=== PATIENT | female | born 2005 | race Caucasian/White ===

== ENCOUNTER 2024-04-01 14:57 | Emergency (ER) | payer SELFPAY ==
[~2024-04-01] VITALS: Ht 160 cm; Wt 40.4 kg
[2024-04-01 15:06] VITALS: PULSE 88; RESP 22; TEMP 98; O2SAT 100
[2024-04-01 15:33] LABS: BASOPHILS % 0.2 % (0.0-1.0); EOSINOPHILS % 0.1 % (0.0-6.0); HEMATOCRIT 40.5 % (34.2-44.1); HEMOGLOBIN 14.3 g/dL (12.0-16.0); LYMPHOCYTES # (AUTO) 1.4 (1.0-3.2); LYMPHOCYTES % 16.9 % (18.0-39.1); MEAN CORPUSCULAR HEMOGLOBIN 30.8 pg (28-32); MEAN CORPUSCULAR HGB CONC 35.3 g/dL (31-35); MEAN CORPUSCULAR VOLUME 87.3 fL (81-99); MONOCYTES # (AUTO) 0.4 (0.2-0.8); MONOCYTES % 5.3 % (4.4-11.3); NEUTROPHILS # (AUTO) 6.4 (2.1-6.9); PLATELET COUNT 326 x10e3/uL (140-360); RED BLOOD COUNT 4.64 x10e6/uL (3.6-5.1); RED CELL DISTRIBUTION WIDTH 12.9 % (11.7-14.4); WHITE BLOOD COUNT 8.29 x10e3/uL (4.8-10.8)
[2024-04-01 15:36] LABS: BILIRUBIN,URINE NEGATIVE (NEGATIVE); CLARITY,URINE SL CLOUDY (CLEAR); COLOR,URINE YELLOW (YELLOW); GLUCOSE, URINE NEGATIVE (NEGATIVE); KETONES,URINE 2+ (NEGATIVE); LEUKOCYTE ESTERASE ,URINE NEGATIVE (NEGATIVE); NITRITE,URINE NEGATIVE (NEGATIVE); PH,URINE 7.5 (5 - 7); PROTEIN,URINE DIPSTICK 1+ (NEGATIVE); URINE UROBILINOGEN 0.2 mg/dL (0.2 - 1)
[2024-04-01 15:47] LABS: BACTERIA,URINE MODERATE /HPF; EPITHELIAL CELLS,URINE MODERATE /LPF; RBC,URINE 0-5 /HPF (0-5)
[2024-04-01 15:50] LABS: ALBUMIN 4.7 g/dL (3.5-5.0); ALBUMIN/GLOBULIN RATIO 1.7 (0.8-2.0); ANION GAP 16.7 mmol/L (8-16); BILIRUBIN,TOTAL 0.8 mg/dL (0.2-1.2); CALCIUM 10.3 mg/dL (8.4-10.2); CREATININE, SERUM 0.72 mg/dL (0.57-1.11); POTASSIUM 3.7 mmol/L (3.5-5.1); TOTAL PROTEIN 7.4 g/dL (6.5-8.1)
[2024-04-01] MEDS: ONDANSETRON HCL INJ 2MG/ML 2ML 2 MG/ML VIAL IV STA (16:24)
[2024-04-01] MEDS: FENTANYL CITRATE/PF 100MCG/2 ML INJ IV PRN (16:25)
[2024-04-01] MEDS: SODIUM CHLORIDE 0.9% 500ML 500 ML IV STA (18:23)
== END 2024-04-01 18:40 | disposition home or self-care (01) ==
LOC: ER 15:47
DX: R10.32 Left lower quadrant pain (principal); N83.202 Unspecified ovarian cyst, left side; R11.2 Nausea with vomiting, unspecified; D64.9 Anemia, unspecified; Z33.1 Pregnant state, incidental; F17.210 Nicotine dependence, cigarettes, uncomplicated
CPT/HCPCS: 36415; 76817; 80053; 81001; 84702; 85025; 99283; J2405; J3010; J7040

== ENCOUNTER 2024-05-18 21:59 | Emergency (ER) | payer SELFPAY ==
[~2024-05-18] VITALS: Ht 160 cm; Wt 44.5 kg
[2024-05-18] MEDS: SODIUM CHLORIDE 0.9% 1000ML 2,000 ML IV STA ×2 (22:30→23:22)
[2024-05-18 22:39] LABS: BASOPHILS # (AUTO) 0.1 (0.0-0.1); BASOPHILS % 0.3 % (0.0-1.0); EOSINOPHILS # (AUTO) 0.1 (0.0-0.4); EOSINOPHILS % 0.3 % (0.0-6.0); HEMATOCRIT 42.2 % (34.2-44.1); HEMOGLOBIN 13.8 g/dL (12.0-16.0); LYMPHOCYTES # (AUTO) 2.4 (1.0-3.2); LYMPHOCYTES % 9.6 % (18.0-39.1); MEAN CORPUSCULAR HEMOGLOBIN 31.4 pg (28-32); MEAN CORPUSCULAR HGB CONC 32.7 g/dL (31-35); MEAN CORPUSCULAR VOLUME 95.9 fL (81-99); MONOCYTES % 3.9 % (4.4-11.3); NEUTROPHILS # (AUTO) 21.6 (2.1-6.9); PLATELET COUNT 266 x10e3/uL (140-360); RED CELL DISTRIBUTION WIDTH 12.6 % (11.7-14.4); WHITE BLOOD COUNT 25.35 x10e3/uL (4.8-10.8)
[2024-05-18 22:54] LABS: ALBUMIN 4.8 g/dL (3.5-5.0); ALBUMIN/GLOBULIN RATIO 1.9 (0.8-2.0); BILIRUBIN,TOTAL 0.7 mg/dL (0.2-1.2); CALCIUM 9.7 mg/dL (8.4-10.2); CREATININE, SERUM 0.79 mg/dL (0.57-1.11); TOTAL PROTEIN 7.3 g/dL (6.5-8.1)
[2024-05-18] MEDS: ONDANSETRON HCL INJ 2MG/ML 2ML 2 MG/ML VIAL IV STA (23:03)
[2024-05-18] MEDS: Morphine 4mg INJECTION 4 MG/ML INJ IV ONE (23:03)
[2024-05-19 00:26] LABS: AMPHETAMINES SCREEN,URINE NEGATIVE (NEGATIVE); OPIATES SCREEN,URINE POSITIVE (NEGATIVE); PHENCYCLIDINE SCREEN,URINE NEGATIVE (NEGATIVE)
[2024-05-19 00:27] LABS: BENZODIAZEPINES SCREEN,URINE NEGATIVE (NEGATIVE); CANNABINOIDS SCREEN,URINE POSITIVE (NEGATIVE); COCAINE SCREEN,URINE NEGATIVE (NEGATIVE); METHADONE SCREEN, URINE NEGATIVE (NEGATIVE)
[2024-05-19 00:28] VITALS: BP 113/70; PULSE 75; RESP 19; TEMP 98.6
[2024-05-19 00:29] LABS: BILIRUBIN,URINE NEGATIVE (NEGATIVE); CLARITY,URINE CLOUDY (CLEAR); COLOR,URINE STRAW (YELLOW); GLUCOSE, URINE NEGATIVE (NEGATIVE); KETONES,URINE 2+ (NEGATIVE); LEUKOCYTE ESTERASE ,URINE TRACE (NEGATIVE); NITRITE,URINE NEGATIVE (NEGATIVE); PH,URINE 5.5 (5 - 7); PROTEIN,URINE DIPSTICK NEGATIVE (NEGATIVE); URINE UROBILINOGEN 0.2 mg/dL (0.2 - 1)
[2024-05-19 00:36] LABS: BACTERIA,URINE MODERATE /HPF; EPITHELIAL CELLS,URINE FEW /LPF; RBC,URINE >50 /HPF (0-5); WBC,URINE (MAN) 0-5 /HPF (0-5)
[2024-05-19 01:42] VITALS: PULSE 88; RESP 19; TEMP 98.7; O2SAT 100
== END 2024-05-19 01:44 | disposition other institution (70) ==
LOC: ER 22:05
DX: O03.37 Sepsis following incomplete spontaneous abortion (principal); R11.2 Nausea with vomiting, unspecified; R10.30 Lower abdominal pain, unspecified; D64.9 Anemia, unspecified
CPT/HCPCS: 36415; 76801; 80053; 80307; 81001; 84702; 85025; 99284; J2270; J2405; J2543; J7030